=== PATIENT | male | born 1950 | race Asian ===

== ENCOUNTER 2024-04-29 16:54 | Inpatient (IN) | payer MEDICARE, OTHER ==
[~2024-04-29] VITALS: Ht 162.6 cm; Wt 64.0 kg
[~2024-04-29 16:54] MED LIST: ASPI-1450 PO; ATOR20TA PO; LISI-893 PO
[2024-04-29] MEDS ORDERED: ASPI1CPM21 PO (17:08)
[2024-04-29] MEDS ORDERED: IOHEXOL 350 MG/ML 100 ML VIAL ONE (17:19)
[2024-04-29] MEDS ORDERED: 0.9% SODIUM CHLORIDE 10 ML SYRINGE IVP ONE (17:19)
[2024-04-29] MEDS ORDERED: SODIUM CHLORIDE 0.9% 100 ML ONE (17:19)
[2024-04-29 18:03] LABS: HEMATOCRIT 33.7 % (41-53); HEMOGLOBIN 11.3 g/dL (13.5-17.5); MEAN CORPUSCULAR HEMOGLOBIN 35.2 pg (26.0-34.0); MEAN CORPUSCULAR HGB CONC 33.6 G/dL (31.0-37.0); MEAN CORPUSCULAR VOLUME 105 fL (80-100); PLATELET COUNT (AUTO) 218 K/uL (150-450); RED BLOOD CELL COUNT(AUTO) 3.23 MIL/uL (4.50-5.90); RED CELL DISTRIBUTION WIDTH 13.7 % (11.5-14.5); WHITE BLOOD COUNT (AUTO) 6.7 K/uL (4.5-11.0)
[2024-04-29 18:12] LABS: ANION GAP 9 mmol/L (8-16); CALCIUM, TOTAL 7.8 mg/dL (8.8-10.5); CARBON DIOXIDE 24 mmol/L (22-29); CHLORIDE 92 mmol/L (98-107); GLOMERULAR FILTR. RATE CALC > 60 mL/min (>60); GLUCOSE,RANDOM 151 mg/dL (70-110); POTASSIUM 3.7 mmol/L (3.5-5.1); SODIUM SERUM 125 mmol/L (136-145); UREA NITROGEN, BLOOD 15 mg/dL (7-18)
[2024-04-29 18:18] LABS: ALANINE AMINOTRANSFERASE 22 U/L (12-78); ALBUMIN 3.2 g/dL (3.4-5.0); ALKALINE PHOSPHATASE 48 U/L (46-116); ASPARTATE AMINOTRANSFERASE 24 U/L (15-37); BILIRUBIN,TOTAL 0.5 mg/dL (0.1-1.0); TOTAL PROTEIN, SERUM 5.7 g/dL (6.4-8.2)
[2024-04-29 18:20] LABS: TROPONIN I-HIGH SENSITIVITY 13 ng/L (<76)
[2024-04-29 18:38] LABS: PROTHROMBIN TIME 10.9 SEC (9.4-11.6)
[2024-04-29 19:06] LABS: BAND NEUTROPHILS % (MANUAL) 0 % (0-5)
[2024-04-29 19:10] LABS: BASOPHILS % (MANUAL) 0 % (0-2); EOSINOPHILS % (MANUAL) 0 % (1-6); LYMPHOCYTES % (MANUAL) 21 % (22-44); MONOCYTES % (MANUAL) 6 % (2-9); REACTIVE LYMPHOCYTES 0 % (0-0); SEGMENTED NEUTROPHILS % 73 % (40-70)
[2024-04-29 19:11] LABS: TOTAL CELLS COUNTED 100
[2024-04-29 19:12] LABS: BLASTS, MANUAL % 0 (0-0); METAMYELOCYTES % 0 % (0-0); MYELOCYTES % 0 % (0-0); OTHER CELLS,MANUAL % 0 (0-0); PROMYELOCYTES % 0 (0-0); RBC MORPHOLOGY COMMENT ABNORMAL RBC MORPH
[2024-04-29 19:18] LABS: APPEARANCE,URINE CLEAR (CLEAR); BILIRUBIN,URINE NEGATIVE (NEGATIVE); COLOR,URINE COLORLESS (YELLOW); GLUCOSE, URINE (UA) NEGATIVE (NEGATIVE); KETONES,URINE NEGATIVE (NEGATIVE); LEUKOCYTE ESTERASE ,URINE NEGATIVE (NEGATIVE); NITRATE,URINE NEGATIVE (NEGATIVE); OCCULT BLOOD,URINE TRACE (NEGATIVE); PH,URINE 6.5 (5.0-8.0); PH,URINE DRUG SCREEN 6.5 (5.0-8.0); PROTEIN,URINE NEGATIVE (NEGATIVE); SPECIFIC GRAVITIY, URINE 1.034 (1.003-1.030); UROBILINOGEN,URINE <=1.0 mg/dL (<=1.0)
[2024-04-29 19:38] LABS: ALCOHOL, URINE DRUG SCREEN NEGATIVE (NEGATIVE); AMPHET/METH SCREEN,URINE NEGATIVE (NEGATIVE); BARBITURATE SCREEN, URINE NEGATIVE (NEGATIVE); BENZODIAZEPINES SCREEN,URINE NEGATIVE (NEGATIVE); CANNABINOID SCREEN,URINE NEGATIVE (NEGATIVE); COCAINE SCREEN,URINE NEGATIVE (NEGATIVE); METHADONE SCREEN, URINE NEGATIVE (NEGATIVE); OPIATE SCREEN,URINE NEGATIVE (NEGATIVE); PHENCYCLIDINE SCREEN,URINE NEGATIVE (NEGATIVE)
[2024-04-29] MEDS ORDERED: ATOR40TA71 PO (20:07)
[2024-04-29] MEDS ORDERED: LISI20TA24 PO (20:07)
[2024-04-29] MEDS: ASPIRIN 325 MG TABLET PO ONE (20:10)
[2024-04-29] MEDS: CLOPIDOGREL BISULFATE 75 MG TABLET PO ONE (20:10)
[2024-04-29 20:28] LABS: BACTERIA,URINE None Seen /HPF (None Seen); RBC,URINE 0-2 /HPF (0-2); WBC,URINE None Seen /HPF (0-5)
[2024-04-29] MEDS ORDERED: ONDANSETRON HCL 4 MG/2 ML VIAL IVP PRN (21:00)
[2024-04-29] MEDS ORDERED: HYDROCODONE/ACETAMINOPHEN 5-325 MG TABLET PO PRN (21:00)
[2024-04-29] MEDS: ATORVASTATIN CALCIUM 40 MG TABLET PO SCH (21:00)
[2024-04-29] MEDS ORDERED: ALBUTEROL SULFATE 2.5 MG/0.5 ML NEB SOLUTION NEB PRN (21:00)
[2024-04-29] MEDS ORDERED: MORPHINE SULFATE 2 MG/ML SYRINGE IVP PRN (21:00)
[2024-04-29] MEDS ORDERED: BISACODYL 10 MG RECTAL RECTAL SUPPOSITORY PR PRN (21:00)
[2024-04-29] MEDS ORDERED: ACETAMINOPHEN 325 MG TABLET PO PRN (21:00)
[2024-04-29] MEDS ORDERED: ZOLPIDEM TARTRATE 5 MG TABLET PO PRN (21:00)
[2024-04-29] MEDS ORDERED: IPRATROPIUM BROMIDE 0.5 MG/2.5 ML NEB SOLUTION NEB PRN (21:00)
[2024-04-29] MEDS ORDERED: MAGNESIUM HYDROXIDE SUSPENSION 30 ML UDCUP PO PRN (21:00)
[2024-04-29] MEDS: PANTOPRAZOLE SODIUM 40 MG/VIAL IVP SCH (21:41)
[2024-04-29] MEDS: DOCUSATE SODIUM 100 MG CAPSULE PO SCH (21:41)
[2024-04-29] MEDS: ASPIRIN/DIPYRIDAMOLE ER 25/200 MG ER CAPSULE PO SCH (22:00)
[2024-04-30 00:18] VITALS: BP 139/74; PULSE 56; RESP 19; TEMP 97.6; O2SAT 100
[2024-04-30] MEDS: HEPARIN SODIUM,PORCINE 5,000 UNITS/ML VIAL SQ SCH (01:02)
[2024-04-30 01:45] LABS: TROPONIN I-HIGH SENSITIVITY 16 ng/L (<76)
[2024-04-30 05:17] VITALS: BP 142/77; PULSE 54; RESP 18; TEMP 97.6; O2SAT 100
[2024-04-30 06:54] LABS: HEMATOCRIT 36.8 % (41-53); HEMOGLOBIN 12.4 g/dL (13.5-17.5); MEAN CORPUSCULAR HEMOGLOBIN 35.4 pg (26.0-34.0); MEAN CORPUSCULAR HGB CONC 33.8 G/dL (31.0-37.0); MEAN CORPUSCULAR VOLUME 105 fL (80-100); PLATELET COUNT (AUTO) 246 K/uL (150-450); RED BLOOD CELL COUNT(AUTO) 3.51 MIL/uL (4.50-5.90); RED CELL DISTRIBUTION WIDTH 13.4 % (11.5-14.5); WHITE BLOOD COUNT (AUTO) 7.5 K/uL (4.5-11.0)
[2024-04-30 07:04] LABS: ANION GAP 7 mmol/L (8-16); CALCIUM, TOTAL 8.3 mg/dL (8.8-10.5); CARBON DIOXIDE 27 mmol/L (22-29); CHLORIDE 96 mmol/L (98-107); CREATININE 0.98 mg/dL (0.60-1.30); GLOMERULAR FILTR. RATE CALC > 60 mL/min (>60); GLUCOSE,RANDOM 85 mg/dL (70-110); POTASSIUM 4.1 mmol/L (3.5-5.1); SODIUM SERUM 130 mmol/L (136-145); UREA NITROGEN, BLOOD 13 mg/dL (7-18)
[2024-04-30 07:09] LABS: TROPONIN I-HIGH SENSITIVITY 13 ng/L (<76)
[2024-04-30 07:27] VITALS: BP 154/80; PULSE 58; RESP 20; TEMP 97.4; O2SAT 92
[2024-04-30 08:30] LABS: BAND NEUTROPHILS % (MANUAL) 5 % (0-5); EOSINOPHILS % (MANUAL) 2 % (1-6); LYMPHOCYTES % (MANUAL) 39 % (22-44); MONOCYTES % (MANUAL) 1 % (2-9); RBC MORPHOLOGY COMMENT ABNORMAL RBC MORPH; SEGMENTED NEUTROPHILS % 53 % (40-70); TOTAL CELLS COUNTED 100
[2024-04-30] MEDS: ASPIRIN 81 MG DR TABLET PO SCH (08:48)
[2024-04-30 11:19] VITALS: BP 137/83; PULSE 62; RESP 18; TEMP 98; O2SAT 98
[2024-04-30] MEDS: LISINOPRIL 20 MG TABLET PO ONE (12:59)
[2024-04-30] MEDS: MULTIVITAMINS WITH MINERALS, THERAPEUTIC 15 ML UDCUP PO ONE (12:59)
[2024-04-30 13:34] LABS: CHOL/HDL RATIO 2.2 (4.2-7.3); CHOLESTEROL 104 mg/dL (131-200); HDL CHOLESTEROL 47 mg/dL (40-60); LDL CHOL (CALC.) 45 mg/dL (0-130); TRIGLYCERIDES 58 mg/dL (15-150)
[2024-04-30] MEDS ORDERED: ASPI-1450 PO (15:08)
[2024-04-30] MEDS ORDERED: CLOP75TA60 PO (15:08)
[2024-04-30 16:23] VITALS: BP 128/80; PULSE 62; RESP 20; TEMP 98; O2SAT 98
[2024-05-01] MEDS ORDERED: LISINOPRIL 20 MG TABLET PO SCH (09:00)
== END 2024-04-30 16:45 | disposition home or self-care (01) | DRG 69 ==
LOC: EMS 17:00 → EDH 21:48 → 5S 04-30
PROVIDERS: ADMIT Hospitalist; ATTEND Hospitalist
DX: G45.9 Transient cerebral ischemic attack, unspecified (principal); E87.1 Hypo-osmolality and hyponatremia; G81.94 Hemiplegia, unspecified affecting left nondominant side; I10 Essential (primary) hypertension; E78.00 Pure hypercholesterolemia, unspecified; Z86.73 Personal history of transient ischemic attack (TIA), and cerebral infarction without residual deficits; Z87.891 Personal history of nicotine dependence; Z79.899 Other long term (current) drug therapy
CPT/HCPCS: 70496; 70498; 70551; 71045; 80048; 80053; 80061; 80307; 81001; 82948; 84484; 85025; 85610; 85730; 92610; 93005; 93306; 93880; 97165; 97535; 99285; C9113; G0378; J1644; J7050; 36415-L1; 36415-TC; 70450; 70450-TC